=== PATIENT | female | born 1970 | race Caucasian/White ===

== ENCOUNTER → 2016-12-02 | Outpatient (CLI) | payer OTHER ==
[~2016-12-02] MED LIST: CALCIUM + D 6001 TA1 PO; CINNAMON PLUS1 EACH PO; COLESTID PO; GARLIC OIL1000 MG PO; IRON1 TAB PO; PROBIOTIC1 EAC1 PO; SUPER B-COMPL400 MCG PO; ZANTAC150 MG PO
--- NOTE | ~2016-12-02 | CR63 ---
[facility] A Service of [facility] RADIOLOGY TEXT RESULTS PATIENT: DELORIS BAILEY LOCATION: [facility] : [birth year] UNIT #: [id number] AGE: [address]: Oh Sullivan MD SEX: F ORDER DR: [id number] [facility]. [place], [place] [address] [id number] O MR#: [id number] Acc #: [id number] NAME: DELORIS BAILEY : 1970 SEX: F STUDY DATE/TIME: 12/02/2016 11:30 UNIT: [facility] ROOM: STUDY DESCRIPTION: CR Chest 2 View Attending Physician: Oh Sullivan M.D. Referring Physician: Oh Sullivan M.D. Ordering Physician: Oh Sullivan M.D. Primary Care Physician: Oh Sullivan M.D. MEDICAL IMAGING REPORT This report is preliminary unless electronic signature is present EXAM Chest x-ray. HISTORY Cough, congestion, fever and shortness of breath over the past two weeks. TECHNIQUE Two views of the chest were obtained. FINDINGS PA and lateral examination of the chest upright shows a good expansion of the parenchyma with a normal distribution of the pulmonary vascularity. There is no indication of congestion, effusion, infiltrate, tumor, or nodular density. The pleural reflections and diaphragmatic contours are normal. The cardiac silhouette and mediastinal anatomy is within normal limits. IMPRESSION Normal chest. Dictated by... Micheal Rivera M.D. THIS IS AN ELECTRONICALLY VERIFIED REPORT Micheal Rivera M.D. at 12/02/2016 6:16 PM MAYURF/[email or web address] TD: 12/02/2016 13:46 JOB #: [id number] [facility] A Service [facility] RADIOLOGY TEXT RESULTS PATIENT: DELORIS BAILEY LOCATION: [facility] : 68 UNIT #: [id number] AGE: [address]: Oh Sullivan MD SEX: F ORDER DR: MEDICAL IMAGING REPORT Page 1 of 1 COPY
== END | disposition home or self-care (01) ==
LOC: CRAD 10:59
DX: R05 Cough (principal)
CPT/HCPCS: 71020

== ENCOUNTER → 2017-01-25 | Outpatient (CLI) | payer OTHER ==
[2017-01-25 16:59] LABS: HEMATOCRIT 36.1 % (35.0-45.0); HEMOGLOBIN 11.7 gm/dL (12.0-16.0); MEAN CELL VOLUME 89.9 FL (83-96); MEAN CORPUSCULAR HEMOGLOBIN 29.2 PG (28-34); MEAN CORPUSCULAR HGB CONC 32.5 g/dL (30-36); MEAN PLATELET VOLUME 8.4 FL (6.5-11.5); RED BLOOD COUNT 4.02 X10e (3.90-5.30); RED CELL DISTRIBUTION WIDTH 13.6 % (11.0-15.5); WHITE BLOOD COUNT 7.7 X10e3 (4.0-10.5)
[2017-01-25 17:19] LABS: ALBUMIN SERUM 4.5 g/dL (3.5-5.0); BILIRUBIN,TOTAL 0.3 mg/dL (0.2-2.0); CALCIUM SERUM 9.6 mg/dL (8.4-10.2); GLOM FILT RATE Estimated 67.1 mL/min (>60); PROTEIN TOTAL SERUM 7.8 g/dL (6.0-8.3)
[2017-01-28 22:55] LABS: GLIADIN IGA AB 5 Units (<20); GLIADIN IGG AB 5 Units (<20); RETICULIN IGA SCREEN W/REFLEX Negative (Negative); TISSUE TRANSGLUTAMINASE IGA AB 1 U/mL (<4)
== END | disposition home or self-care (01) ==
LOC: CLAB 16:30
PROVIDERS: Internal Medicine
DX: R19.7 Diarrhea, unspecified (principal)
CPT/HCPCS: 36415; 80053; 83516; 85027; 86140; 86255

== ENCOUNTER 2017-03-06 14:24 | Emergency (ER) | payer OTHER ==
[~2017-03-06] VITALS: Ht 167.6 cm; Wt 62.6 kg
[2017-03-06 15:10] LABS: URINE SOURCE CLEAN CATCH
[2017-03-06 15:24] LABS: URINE APPEARANCE CLOUDY; URINE BILIRUBIN NEG (NEG); URINE BLOOD NEG (NEG); URINE COLOR YELLOW; URINE GLUCOSE NEG (NEG); URINE KETONE NEG (NEG); URINE LEUKOCYTE ESTERASE 1+ (NEG); URINE NITRATE NEG (NEG); URINE PH 5.5 (5-8); URINE PROTEIN NEG (NEG); URINE SPECIFIC GRAVITY 1.009 (1.003-1.035); URINE UROBILINOGEN 0.2 MG/DL (NEG)
[2017-03-06 15:26] LABS: CULTURE INDICATED? YES; U HYALINE CASTS AUWI 0-2 /[LPF]; URINE BACTERIA AUWI 2+ (NEGATIVE); URINE SQUAMOUS EPITHELIAL CELL MOD /[HPF]
[2017-03-06 16:03] LABS: BASOPHIL% 0.2 % (0-2.5); DIFF IND NO; EOSINOPHIL% 0.3 % (0.0-7.0); HEMATOCRIT 37.3 % (35.0-45.0); HEMOGLOBIN 12.4 gm/dL (12.0-16.0); LYMPHOCYTE# 1.8 X10e3 (1.0-3.5); LYMPHOCYTE% 14.7 % (17.0-45.0); MEAN CELL VOLUME 89.5 FL (83-96); MEAN CORPUSCULAR HEMOGLOBIN 29.9 PG (28-34); MEAN CORPUSCULAR HGB CONC 33.4 g/dL (30-36); MEAN PLATELET VOLUME 8.4 FL (6.5-11.5); MONOCYTE# 0.8 X10e3 (0-1.0); MONOCYTE% 6.7 % (3.0-12.0); NEUTROPHIL# 9.4 X10e3 (1.5-7.1); NEUTROPHIL% 78.1 % (40-75); PLATELET COUNT 266 X10e3 (140-420); RED BLOOD COUNT 4.17 X10e (3.90-5.30); RED CELL DISTRIBUTION WIDTH 14.1 % (11.0-15.5)
[2017-03-06 16:34] LABS: ALBUMIN SERUM 4.4 g/dL (3.5-5.0); ALKALINE PHOSPHATASE 64 U/L (32-92); ALT (SGPT) 22 U/L (10-40); AST (SGOT) 21 U/L (10-42); BILIRUBIN,TOTAL 0.6 mg/dL (0.2-2.0); BLOOD UREA NITROGEN 12 mg/dL (9-23); CALCIUM SERUM 9.4 mg/dL (8.4-10.2); CARBON DIOXIDE 25 mmol/L (22-31); CHLORIDE 105 mmol/L (100-111); GLOM FILT RATE Estimated 67.1 mL/min (>60); GLUCOSE FASTING 93 mg/dL (70-110); LIPASE 25 U/L (22-51); POTASSIUM 3.5 mmol/L (3.5-5.1); PROTEIN TOTAL SERUM 7.6 g/dL (6.0-8.3); SODIUM 137 mmol/L (135-145)
[2017-03-06 16:36] LABS: BILIRUBIN, DIRECT <0.1 mg/dL (0.0-0.2); BILIRUBIN,INDIRECT 0.5 mg/dL (0.0-0.9)
== END 2017-03-06 19:57 | disposition home or self-care (01) ==
LOC: CED 14:24
PROVIDERS: Emergency Medicine
DX: R19.7 Diarrhea, unspecified (principal); Z98.51 Tubal ligation status
CPT/HCPCS: 36415; 80048; 80076; 81003; 83690; 84703; 85025; 87086; 96361; 96374; 96375; 99284; J2405

== ENCOUNTER → 2017-03-23 | Outpatient (CLI) | payer OTHER ==
--- NOTE | ~2017-03-23 | US77 ---
[facility] A Service of [facility] RADIOLOGY TEXT RESULTS PATIENT: DELORIS ABILEY LOCATION: [facility] : [birth year] UNIT #: [id number] AGE: [address]: Natali Grider MD SEX: F ORDER DR: [id number] [facility] [address] [place], [place] [address] [id number] O MR#: [id number] Acc #: [id number] NAME: DELORIS BAILEY : 1970 SEX: F STUDY DATE/TIME: 03/23/2017 13:22 UNIT: [facility] ROOM: STUDY DESCRIPTION: US Kidney Bilateral Complete Attending Physician: Natali Grider M.D. Referring Physician: Natali Grider M.D. Ordering Physician: Natali Grider M.D. Primary Care Physician: Oh Sullivan M.D. MEDICAL IMAGING REPORT This report is preliminary unless electronic signature is present EXAM Renal ultrasound, 03/23/2017. HISTORY Chronic kidney disease stage 3, moderate, follow up. FINDINGS The right kidney measures 11.9 cm while the left kidney measures 8.5 cm in longitudinal dimensions. There is no evidence of hydronephrosis or nephrolithiasis. No cystic or solid mass lesions were seen on either kidney and there is normal renal cortical echogenicity. Images of the bladder are normal. IMPRESSION 1. Negative renal ultrasound. 2. Images of the bladder are normal. Dictated by... Elie Monterroso M.D. THIS IS AN ELECTRONICALLY VERIFIED REPORT Elie Monterroso M.D. at 03/24/2017 7:19 AM KOBY/[email or web address] TD: 03/23/2017 23:08 JOB #: [id number] MEDICAL IMAGING REPORT Page 1 of 1 COPY
== END | disposition home or self-care (01) ==
LOC: CGUS 12:45
DX: N18.3 Chronic kidney disease, stage 3 (moderate) (principal)
CPT/HCPCS: 76770